=== PATIENT | female | born 1990 | race Caucasian/White ===

== ENCOUNTER 2019-09-04 12:03 | Observation (INO) ==
[2019-09-04] MEDS ORDERED: Ringers Solution, Lactated 1,000 ML IVC SCH (13:00)
[2019-09-04] MEDS ORDERED: Acetaminophen IV 1,000 MG/100 ML INFUS..BTL IVPB ONE (13:05)
[2019-09-04] MEDS ORDERED: *HR* HYDROmorphone (PF) 1 MG/ML SYRINGE IVP PRN (13:05)
[2019-09-04] MEDS ORDERED: *HR* HYDROmorphone 2 MG TABLET PO PRN (13:05)
[2019-09-04] MEDS ORDERED: *HR* OxyCODONE Immed Rel 5 MG TABLET PO PRN ×2 (13:05→17:23)
[2019-09-04] MEDS ORDERED: Scopolamine Patch 1.5 MG PATCH.TD72 TD ONE (13:05)
[2019-09-04] MEDS ORDERED: Famotidine 20 MG/2 ML VIAL IVP ONE (13:05)
[2019-09-04] MEDS ORDERED: *HR* Labetalol 20 MG/4 ML SYRINGE IVP PRN (13:05)
[2019-09-04] MEDS ORDERED: *HR* Promethazine 25 MG/ML VIAL IVP PRN (13:05)
[2019-09-04] MEDS ORDERED: Pregabalin 75 MG CAPSULE PO ONE (13:05)
[2019-09-04] MEDS ORDERED: *HR* Propofol 200 MG/20 ML VIAL IVP ONE (13:29)
[2019-09-04] MEDS ORDERED: Ondansetron 4 MG/2 ML VIAL ONE (13:29)
[2019-09-04] MEDS ORDERED: *HR* FentaNYL (PF) 100 MCG/2 ML VIAL ONE ×2 (13:29→14:28)
[2019-09-04] MEDS ORDERED: *HR* Midazolam HCl 2 MG/2 ML VIAL ONE (13:29)
[2019-09-04] MEDS ORDERED: Lidocaine -MPF 2% 2 ML VIAL ONE (13:29)
[2019-09-04] MEDS ORDERED: Dexamethasone 4 MG/ML VIAL ONE (13:29)
[2019-09-04] MEDS ORDERED: *HR* Succinylcholine 200 MG/10 ML VIAL IVP ONE (13:29)
[2019-09-04] MEDS ORDERED: Bupivacaine/EPI 1:200k 0.5%PF 10 ML VIAL ONE (13:30)
[2019-09-04] MEDS ORDERED: Lidocaine 1% 0 ML ONE (13:30)
[2019-09-04] MEDS ORDERED: Neostigmine Methylsulfate 3 MG/3 ML SYRINGE ONE (15:20)
[2019-09-04] MEDS ORDERED: *HR* HYDROMORPHONE 2 MG/ML VIAL ONE (15:26)
[2019-09-04] MEDS ORDERED: Naloxone 0.4 MG/ML INJ IVP PRN (17:23)
[2019-09-04] MEDS ORDERED: *HR* HYDROcodone/Acet 5/325 mg TABLET PO PRN (17:23)
[2019-09-04] MEDS ORDERED: Ondansetron ODT 4 MG TAB.RAPDIS SL PRN (17:23)
[2019-09-04] MEDS: Ringers Solution, Lactated 1,000 ML IVC SCH (20:33)
[2019-09-04] MEDS: ceFAZolin 2,000 MG in 0.9 % Sodium Chloride 100 ML IVPB SCH (23:48)
[2019-09-04] MEDS: Ibuprofen 400 MG TABLET PO PRN (23:49)
[2019-09-05] MEDS: Ringers Solution, Lactated 1,000 ML IVC SCH (02:13)
[2019-09-05 06:56] VITALS: BP 138/76
[2019-09-05] MEDS: Ibuprofen 400 MG TABLET PO PRN (08:35)
[2019-09-05] MEDS: ceFAZolin 2,000 MG in 0.9 % Sodium Chloride 100 ML IVPB SCH (08:36)
[2019-09-05] MEDS ORDERED: FLU Vac QV 19-20 (6Month+)/PF 0.5 ML SYRINGE IM ONE (11:09)
== END 2019-09-05 11:55 | disposition home or self-care (01) ==
LOC: 3NENU 12:03 → SAMDAY 12:03 → EDSTATUS 15:30 → 3NENU 16:22
PROVIDERS: ADMIT Orthopaedic Surgery Hand Surgery; ATTEND Orthopaedic Surgery Hand Surgery